=== PATIENT | female | born 1985 | race African-American/Black ===

== ENCOUNTER 2019-04-22 08:47 | Emergency (ER) | payer OTHER ==
[2019-04-22 09:13] VITALS: BP 121/79
--- NOTE | 2019-04-22 09:25 | ED Physician Documentation ---
PD HPI FEMALE - Stated complaint Stated Complaint: FEMALE - Chief complaint Chief Complaint: UTI - History obtained from History obtained from: Patient - History of Present Illness Timing - onset: Yesterday Timing - details: Still present Associated symptoms: Vaginal discharge, Dysuria Similar symptoms before: Diagnosis (Similar symptoms about 5 years ago with vaginal yeast infection during .) Recently seen: Other (She was diagnosed with "walking pneumonia" 1 week ago and was prescribed Zithromax and prednisone, which she has completed as of 2 days ago.) - Additional information Additional information: The patient is a 34-year-old female who presents with dysuria, vaginal itching, and a whitish vaginal discharge that started yesterday. She completed a course of Zithromax and prednisone 2 days ago after being diagnosed with "walking pneu monia" 1 week ago. Her pulmonary symptoms have resolved, but she has developed vaginal symptoms as above. She denies fever, abdominal pain, or back pain. Her last menstrual period was 2 weeks ago. She is status post bilateral tubal ligation. Review of Systems Constitutional: denies: Fever Nose: denies: Congestion Throat: denies: Sore throat Cardiac: denies: Chest pain / pressure Respiratory: denies: Dyspnea, Cough GI: denies: Abdominal Pain, Nausea, Vomiting : reports: Dysuria, Discharge, LMP (2 weeks ago.) Skin: denies: Rash Musculoskeletal: denies: Back pain Neurologic: denies: Headache PD PAST MEDICAL HISTORY - Past Medical History Cardiovascular: Hypertension Endocrine/Autoimmune: None - Present Medications Home Medications: Ambulatory Orders Medication Instructions Recorded Confirmed Fluconazole [Diflucan] 150 mg PO ONCE #1 tablet 04/22/19 amLODIPine [Norvasc] 10 mg PO DAILY 04/22/19 04/22/19 - Allergies Allergies/Adverse Reactions: Allergies Allergy/AdvReac Type Severity Reaction Status Date / Time No Known Drug Allergies Allergy Verified 04/22/19 09:07 PD ED PE NORMAL - Vitals Vital signs reviewed: Yes (Normal) - General General: Alert and oriented X 3, Well developed/nourished - HEENT HEENT: Atraumatic, Pharynx benign - Neck Neck: No adenopathy - Cardiac Cardiac: RRR - Respiratory Respiratory: No respiratory distress, Clear bilaterally - Abdomen Abdomen: Soft, Non tender - Back Back: No CVA TTP - Derm Derm: No rash - Extremities Extremities: No tenderness to palpate, No edema - Neuro Neuro: Alert and oriented X 3, No motor deficit, Normal speech Results - Vitals Vitals: Vital Signs - 24 hr 04/22/19 09:05 Temperature 36.7 C Heart Rate 84 Respiratory 16 Rate Blood Pressure 121/79 O2 Saturation 100 Oxygen O2 Source Room air - Labs Labs: Laboratory Tests 04/22/19 09:05 Urine Color YELLOW Urine Clarity HAZY Urine pH 6.0 Ur Specific [place] 1.010 Urine Protein NEGATIVE Urine Glucose (UA) NEGATIVE Urine Ketones NEGATIVE Urine Occult Blood TRACE-LYSE Urine Nitrite NEGATIVE Urine Bilirubin NEGATIVE Urine Urobilinogen 0.2 (NORMAL) Ur Leukocyte Esterase SMALL H Urine RBC 0-5 Urine WBC 0-3 Ur Squamous Epith Cells RARE Squamous Urine Bacteria Rare Ur Microscopic Review INDICATED Urine Culture Comments INDICATED PD MEDICAL DECISION MAKING - ED course Complexity details: reviewed results, re-evaluated patient, considered differential, d/w patient ED course: The patient's presentation is most consistent with vaginal yeast infection after completing a treatment course of Zithromax for pulmonary infection. Urinalysis reveals only 0-3 white cells per high-powered field, so is unlikely to represent a bladder infection. Treatment in the emergency department included administration of Diflucan 100 mg orally. She is being discharged with prescription for another tablet of Diflucan. I discussed with her the diagnosis, treatment and outpatient follow- up, as well as potentially worrisome signs or symptoms that should prompt reevaluation in the emergency department. Departure - Departure Disposition: 01 Home, Self Care Clinical Impression: Vaginal yeast infection Condition: Stable Instructions: ED Vaginal Infec Fungal Jennifer Follow-Up: [facility] [Provider Group] Prescriptions: Fluconazole [Diflucan] 150 mg PO ONCE #1 tablet Comments: Take Diflucan as prescribed. Follow-up with your primary physician or return to the emergency department if you develop increasing discharge, pain with urination, or otherwise worsening symptoms.
[2019-04-22 09:29] LABS: BILIRUBIN,URINE NEGATIVE (NEGATIVE); GLUCOSE, URINE (UA) NEGATIVE (NEGATIVE); KETONES,URINE (UA) NEGATIVE (NEGATIVE); LEUKOCYTE ESTERASE, URINE SMALL (NEGATIVE); NITRITE,URINE NEGATIVE (NEGATIVE); OCCULT BLOOD,URINE TRACE-LYSE (NEGATIVE); PROTEIN,URINE NEGATIVE (NEGATIVE); UROBILINOGEN,URINE 0.2 (NORMAL) E.U./dL (NORMAL)
[2019-04-22 09:36] LABS: CLARITY,URINE HAZY (CLEAR)
[2019-04-22 09:53] LABS: BACTERIA,URINE Rare /HPF (None Seen); RBC,URINE 0-5 /HPF (0-5); SQUAMOUS EPITHELIAL CELL,UR RARE Squamous (<= Few)
[2019-04-22] MEDS ORDERED: FLUCONAZOLE 100 MG TABLET PO STA (10:14)
== END 2019-04-22 10:21 | disposition home or self-care (01) ==
LOC: ED 08:47
DX: B37.3 Candidiasis of vulva and vagina (principal); I10 Essential (primary) hypertension; Z98.51 Tubal ligation status
CPT/HCPCS: 81001; 87086; 87181; 99283; 99284; A9270; 81003

== ENCOUNTER 2019-04-24 17:53 | Emergency (ER) | payer OTHER ==
[2019-04-24 18:19] LABS: BILIRUBIN,URINE NEGATIVE (NEGATIVE); GLUCOSE, URINE (UA) NEGATIVE (NEGATIVE); KETONES,URINE (UA) NEGATIVE (NEGATIVE); LEUKOCYTE ESTERASE, URINE MODERATE (NEGATIVE); NITRITE,URINE NEGATIVE (NEGATIVE); OCCULT BLOOD,URINE SMALL (NEGATIVE); PROTEIN,URINE NEGATIVE (NEGATIVE); UROBILINOGEN,URINE 0.2 (NORMAL) E.U./dL (NORMAL)
[2019-04-24 18:36] LABS: CLARITY,URINE HAZY (CLEAR)
[2019-04-24 18:51] LABS: BACTERIA,URINE None Seen /HPF (None Seen); RBC,URINE 0-5 /HPF (0-5); SQUAMOUS EPITHELIAL CELL,UR NONE SEEN (<= Few); WBC CLUMPS,URINE PRESENT
[2019-04-24 20:07] VITALS: BP 141/87
--- NOTE | 2019-04-24 20:11 | ED Physician Documentation ---
PD HPI FEMALE - Stated complaint Stated Complaint: FEM - Chief complaint Chief Complaint: UTI - History obtained from History obtained from: Patient - History of Present Illness Timing - onset: How many days ago (several) Timing - duration: Days Timing - details: Gradual onset, Still present (worse the past day) Associated symptoms: Dysuria, Urinary frequency. No: Fever, Back pain, Vaginal discharge, Genital sore/lesion Contributing factors: No: , Exposed to STD Recently seen: Emergency Dept (2 days ago for similar and had UA not convincing for UTI. 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 HEENT: None Psych: None Musculoskeletal: None Derm: None - Past Surgical History Past Surgical History: Yes General: Cholecystectomy /MAGAZINE PUBLISHER: section - Present Medications Home Medications: Ambulatory Orders Medication Instructions Recorded Confirmed Fluconazole [Diflucan] 150 mg PO ONCE #1 tablet 04/22/19 amLODIPine [Norvasc] 10 mg PO DAILY 04/22/19 04/22/19 Fluconazole [Diflucan] 150 mg PO ONCE #1 tablet 04/24/19 Phenazopyridine HCl [Pyridium] 100 mg PO TID PRN #15 tablet 04/24/19 Sulfamethox/Trimeth 800/160 1 each PO BID #14 tablet 04/24/19 [Bactrim Ds 800/160] - Allergies Allergies/Adverse Reactions: Allergies Allergy/AdvReac Type Severity Reaction Status Date / Time No Known Drug Allergies Allergy Verified 04/24/19 17:59 - Social History Does the pt smoke?: No Smoking Status: Never smoker Does the pt drink ETOH?: Yes Does the pt have substance abuse?: No - Immunizations Immunizations are current?: No - POLST Patient has POLST: No PD ED PE NORMAL - Vitals Vital signs reviewed: Yes - General General: Alert and oriented X 3, No acute distress, Well developed/nourished - Abdomen Abdomen: Soft, Non tender - Female Female : Deferred - Back Back: No CVA TTP - Derm Derm: Normal color, Warm and dry Results - Vitals Vitals: Vital Signs - 24 hr 10/02/19 10/02/19 10/02/19 17:59 19:57 20:02 Temperature 36.7 C Heart Rate 88 94 Respiratory 15 16 16 Rate Blood Pressure 141/87 H O2 Saturation 100 99 04/24/19 20:25 Temperature Heart Rate Respiratory 17 Rate Blood Pressure O2 Saturation Oxygen O2 Source Room air - Labs Labs: Microbiology 04/24/19 18:00 Urine Culture - Preliminary Urine,Clean Catch Escherichia Coli Laboratory Tests 04/24/19 18:00 Urine Color LT. YELLOW Urine Clarity HAZY Urine pH 7.0 Ur Specific [place] 1.010 Urine Protein NEGATIVE Urine Glucose (UA) NEGATIVE Urine Ketones NEGATIVE Urine Occult Blood SMALL H Urine Nitrite NEGATIVE Urine Bilirubin NEGATIVE Urine Urobilinogen 0.2 (NORMAL) Ur Leukocyte Esterase MODERATE H Urine RBC 0-5 Urine WBC >25 H Urine WBC Clumps PRESENT Ur Squamous Epith Cells NONE SEEN Urine Bacteria None Seen Ur Microscopic Review INDICATED Urine Culture Comments INDICATED PD MEDICAL DECISION MAKING - ED course Complexity details: reviewed results (has UTI. Had not looked at culture result from prior visit (did not think there had been one) until after discharge, and saw recent cx resistant to Bactrim, so had nursing call her to change abx to Keflex. ), considered differential, d/w patient Departure - Departure Disposition: 01 Home, Self Care Clinical Impression: UTI (urinary tract infection) Qualifiers: Urinary tract infection type: acute cystitis Hematuria presence: without hematuria Qualified Code(s): N30.00 - Acute cystitis without hematuria Condition: Stable Record reviewed to determine appropriate education?: Yes Instructions: ED UTI Cystitis Female Prescriptions: Fluconazole [Diflucan] 150 mg PO ONCE #1 tablet Phenazopyridine HCl [Pyridium] 100 mg PO TID PRN #15 tablet PRN Reason: Abdominal Pain Sulfamethox/Trimeth 800/160 [Bactrim Ds 800/160] 1 each PO BID #14 tablet Comments: You do have signs of a bladder infection based on urine test. Stay well-hydra rodolfo. Use Bactrim antibiotic twice daily for a week. Phenazopyridine can be used 3 times a day to help with urinary discomfort. It will turn your urine orange so not to worry. Ibuprofen or naproxen or Tylenol as needed for pains. You can take an oral antifungal at the end of the week to make sure that the antibiotic stone precipitate a yeast infection. Recheck if not improving well over the next few days. Discharge Date/Time: 04/24/19 20:30
[2019-04-24] MEDS ORDERED: NAPROXEN 250 MG TABLET PO STA (20:14)
[2019-04-24] MEDS ORDERED: PHENAZOPYRIDINE 100 MG TABLET PO STA (20:14)
[2019-04-24] MEDS ORDERED: SULFAMETH/TRIMETH DS 800/160 MG TABLET PO STA (20:14)
== END 2019-04-24 20:30 | disposition home or self-care (01) ==
LOC: ED 17:53
DX: N30.00 Acute cystitis without hematuria (principal); I10 Essential (primary) hypertension
CPT/HCPCS: 81001; 87086; 87181; 99283; A9270; 81003

== ENCOUNTER 2019-07-22 09:15 | Emergency (ER) | payer OTHER ==
[2019-07-22 09:58] LABS: BASOPHILS % (AUTO) 0.5 %; EOSINOPHILS # (AUTO) 0.1 10^3/uL (0.0-0.7); EOSINOPHILS % (AUTO) 1.6 %; HGB - HEMOGLOBIN 12.9 g/dL (12.0-16.0); LYMPHOCYTES # (AUTO) 1.4 10^3/uL (1.5-3.5); LYMPHOCYTES % (AUTO) 36.2 %; MEAN CORPUSCULAR HEMOGLOBIN 32.4 pg (27.0-31.0); MEAN CORPUSCULAR HGB CONC 34.3 g/dL (32.0-36.0); MEAN CORPUSCULAR VOLUME 94.5 fL (81.0-99.0); MEAN PLATELET VOLUME 10.8 fL (7.9-10.8); MONOCYTES # (AUTO) 0.4 10^3/uL (0.0-1.0); MONOCYTES % (AUTO) 9.7 %; NEUTROPHILS # (AUTO) 1.9 10^3/uL (1.5-6.6); NEUTROPHILS % (AUTO) 51.7 %; PLT - PLATELET COUNT 209 10^3/uL (130-450); RED BLOOD COUNT 3.98 10^6/uL (4.20-5.40); RED CELL DISTRIBUTION WIDTH 11.6 % (12.0-15.0); WHITE BLOOD COUNT 3.7 x10^3/uL (4.8-10.8)
--- NOTE | 2019-07-22 10:02 | ED Physician Documentation ---
PD HPI ABD PAIN - Stated complaint Stated Complaint: ABD/SIDE PX - Chief complaint Chief Complaint: Abd Pain - History obtained from History obtained from: Patient - History of Present Illness Timing - onset: How many days ago Timing - duration: Days (2) Timing - details: Abrupt onset Pain level now: 3 Quality: Sharp, Pain Location: Other (Left flank) Improved by: Position Worsened by: Moving, Breathing Associated symptoms: No: Fever, Nausea, Vomiting, Diarrhea, Chest pain, Dizzy, Near syncope / syncope Similar symptoms before: Has not had sx before Recently seen: Not recently seen - Additional information Additional information: This is a 34-year-old woman who presents with complaints that 2 days ago she was walking through her house carrying a plastic plate with hamburger and snack on it when she had the sudden onset of pain in her left flank that shot across to the right side of her back and she was so severe she actually fell to her knees. She crawled over to the bed and climbed up into the bed took 2 800 mg of ibuprofen and put a heating pad on her back and the pain let up some but it just has not gone away. Is now starting to move around into her left upper abdomen and her epigastric area. She is tried doing stretches but she now has a constant steady pain at about a 3 out of 10. She can get the pain to ease off if she gets in a certain position but is bad enough if she moves a certain way that she is actually gasping and pain. Was not ill prior to this no coughing. She is not had any dysuria or hematuria. Her sister has a history of kidney stones and her sister not herself. She denies any pain radiating down her legs and denies stating she is status post bilateral tubal ligation. Patient has noted that after her and her have intercourse she has difficulty moving her legs. He actually has to help position her and slowly the strength will come back in her legs. They do not really go numb. Review of Systems Constitutional: denies: Fever Cardiac: denies: Palpitations Respiratory: denies: Dyspnea, Cough GI: reports: Abdominal Pain. 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 SPECIALIST: Other : None HEENT: None Psych: None Musculoskeletal: None Derm: None - Past Surgical History Past Surgical History: Yes General: Cholecystectomy /MEDICAL AUTHORIZATION SPECIALIST: section - Present Medications Home Medications: Ambulatory Orders Medication Instructions Recorded Confirmed Fluconazole [Diflucan] 150 mg PO ONCE #1 tablet 04/22/19 amLODIPine [Norvasc] 10 mg PO DAILY 04/22/19 04/22/19 Fluconazole [Diflucan] 150 mg PO ONCE #1 tablet 04/24/19 Phenazopyridine HCl [Pyridium] 100 mg PO TID PRN #15 tablet 04/24/19 Sulfamethox/Trimeth 800/160 1 each PO BID #14 tablet 04/24/19 [Bactrim Ds 800/160] Cyclobenzaprine [Flexeril] 10 mg PO TID PRN #20 tablet 07/22/19 - Allergies Allergies/Adverse Reactions: Allergies Allergy/AdvReac Type Severity Reaction Status Date / Time No Known Drug Allergies Allergy Verified 07/22/19 09:25 - Social History Does the pt smoke?: No Smoking Status: Never smoker Does the pt drink ETOH?: Yes Does the pt have substance abuse?: No - Immunizations Immunizations are current?: No - POLST Patient has POLST: No PD ED PE NORMAL - Vitals Vital signs reviewed: Yes - General General: Alert and oriented X 3, No acute distress, Well developed/nourished - HEENT HEENT: Atraumatic, PERRL, Moist mucous membranes - Cardiac Cardiac: RRR, No murmur, Strong equal pulses - Respiratory Respiratory: No respiratory distress, Clear bilaterally - Abdomen Abdomen: Normal bowel sounds, Soft, Non tender, Non distended, No organomegaly - Back Back: No: No CVA TTP (Left costovertebral angle tenderness) - Derm Derm: Normal color, Warm and dry, No rash - Extremities Extremities: No tenderness to palpate, No edema - Neuro Neuro: Alert and oriented X 3, part maker 2-12 intact, No motor deficit, No sensory deficit, Normal speech, Other (Reflexes are 2+ and symmetrical at the quadriceps. Negative to seated straight leg raise) - Psych Psych: Normal mood, Normal affect Results - Vitals Vitals: Vital Signs - 24 hr 12/07/22/19 07/22/19 09:25 10:58 11:57 Temperature 36.8 C Heart Rate 80 64 65 Respiratory 20 18 18 Rate Blood Pressure 109/63 119/73 115/78 O2 Saturation 99 100 100 Oxygen O2 Source Room air - Labs Labs: Laboratory Tests 07/22/19 07/22/19 07/22/19 09:10 09:50 09:50 WBC 3.7 L RBC 3.98 L Hgb 12.9 Hct 37.6 MCV 94.5 MCH 32.4 H MCHC 34.3 RDW 11.6 L Plt Count 209 MPV 10.8 Neut # (Auto) 1.9 Lymph # (Auto) 1.4 L [place] # (Auto) 0.4 Eos # (Auto) 0.1 Baso # (Auto) 0.0 Absolute Nucleated RBC 0.00 Nucleated RBC % 0.0 Sodium 138 Potassium 4.0 Chloride 105 Carbon Dioxide 27 Anion Gap 6.0 BUN 14 Creatinine 0.8 Estimated GFR (MDRD) 100 Glucose 91 Calcium 9.4 Total Bilirubin 0.7 AST 15 ALT 16 Alkaline Phosphatase 29 L Total Protein 7.7 Albumin 4.6 Globulin 3.1 Albumin/Globulin Ratio 1.5 Lipase 34 Urine Color LT. YELLOW Urine Clarity CLEAR Urine pH 6.5 Ur Specific [place] 1.010 Urine Protein NEGATIVE Urine Glucose (UA) NEGATIVE Urine Ketones NEGATIVE Urine Occult Blood NEGATIVE Urine Nitrite NEGATIVE Urine Bilirubin NEGATIVE Urine Urobilinogen 0.2 (NORMAL) Ur Leukocyte Esterase NEGATIVE Ur Microscopic Review NOT INDICATED Urine Culture Comments NOT INDICATED Urine HCG, Qual NEGATIVE - Rads (name of study) lumbar xray Radiology: EMP read contemporaneously (neg), See rad report PD MEDICAL DECISION MAKING - ED course Complexity details: reviewed results, re-evaluated patient, d/w patient ED course: Urinalysis was negative. Labs were normal. Patient had Toradol 30 mg IV and was feeling much better she said she could sit upright now. Plain imaging of the thoracic spine did not show any obvious fracture. I recommended that she continue taking ibuprofen [id number] at home. Ice the lower back and continue with stretching. Given her prescription for muscle relaxer if she has difficulty sleeping at night. Given her complaint of her legs feeling very weak after she has been having intercourse and her inability to walk now associated with this spasm I think that it would be warranted to pursue MRI scanning of her lumbar spine to make sure there is not some cord compression. This was discussed with her and she will follow-up with her primary care provider. Departure - Departure Disposition: 01 Home, Self Care Clinical Impression: Spasm of thoracic back muscle Condition: Good Instructions: ED Spasm Back No Trauma Follow-Up: [facility] [Provider Group] Prescriptions: Cyclobenzaprine [Flexeril] 10 mg PO TID PRN #20 tablet PRN Reason: Spasms Comments: Ice the lower back where it hurts and continue with stretching exercises. Take ibuprofen 3 to 4 tablets every 8 hours with food. May use the Flexeril if needed for additional pain but do not drive or operate machinery if you are taking that. I think you should discuss with your primary care provider whether or not you need an MRI scanning based on your symptoms of leg weakness that occur intermittently as you discussed with me.
[2019-07-22 10:11] LABS: ALBUMIN 4.6 g/dL (3.2-5.5); ALBUMIN/GLOBULIN RATIO 1.5 (1.0-2.2); BILIRUBIN,TOTAL 0.7 mg/dL (0.2-1.0); CALCIUM 9.4 mg/dL (8.5-10.3); CREATININE 0.8 mg/dL (0.4-1.0); TOTAL PROTEIN 7.7 g/dL (6.7-8.2)
[2019-07-22 10:11] LABS: BILIRUBIN,URINE NEGATIVE (NEGATIVE); GLUCOSE, URINE (UA) NEGATIVE (NEGATIVE); KETONES,URINE (UA) NEGATIVE (NEGATIVE); LEUKOCYTE ESTERASE, URINE NEGATIVE (NEGATIVE); NITRITE,URINE NEGATIVE (NEGATIVE); OCCULT BLOOD,URINE NEGATIVE (NEGATIVE); PH,URINE 6.5 PH (5.0-7.5); PROTEIN,URINE NEGATIVE (NEGATIVE); UROBILINOGEN,URINE 0.2 (NORMAL) E.U./dL (NORMAL)
[2019-07-22 10:12] LABS: CLARITY,URINE CLEAR (CLEAR); HCG UR QUAL NEGATIVE
[2019-07-22] MEDS ORDERED: KETOROLAC 30 MG/ML VIAL IVP STA (10:28)
--- NOTE | 2019-07-22 11:11 | XRAY Report ---
Reason: back pain Procedure Date: 07/22/2019 Accession Number: [id number] / [id number] Procedure: XR - Thoracic Spine 2 View CPT Code: Final Report FULL RESULT: EXAM: THORACIC SPINE RADIOGRAPHY EXAM DATE: 07/22/2019 10:58 AM. CLINICAL HISTORY: Back pain. COMPARISON: None. TECHNIQUE: 2 views. FINDINGS: Alignment: Normal. No spondylolisthesis or scoliosis. Bones: No fractures or bone lesions. Disks: Normal. Disk heights are maintained. Soft Tissues: Normal. The visualized lungs and cardiomediastinal silhouette are normal. IMPRESSION: Normal thoracic spine radiography. [facility]
[2019-07-22 11:58] VITALS: BP 115/78
== END 2019-07-22 12:21 | disposition home or self-care (01) ==
LOC: ED 09:15
DX: M62.830 Muscle spasm of back (principal); I10 Essential (primary) hypertension
CPT/HCPCS: 36415; 72070; 80053; 81001; 81003; 81025; 83690; 85025; 87086; 96374; 99284

== ENCOUNTER 2020-02-07 14:52 | Emergency (ER) | payer OTHER | END 2020-02-07 15:02 | disposition left against medical advice (07) | LOC: ED 14:52 → MERGE 14:52 → ED 15:02 | DX: Z53.21 Procedure and treatment not carried out due to patient leaving prior to being seen by health care provider (principal) ==

== ENCOUNTER 2020-02-08 11:16 | Emergency (ER) | payer OTHER ==
[2020-02-08 11:44] LABS: BASOPHILS % (AUTO) 0.6 %; EOSINOPHILS # (AUTO) 0.1 10^3/uL (0.0-0.7); EOSINOPHILS % (AUTO) 1.4 %; HGB - HEMOGLOBIN 12.3 g/dL (12.0-16.0); LYMPHOCYTES # (AUTO) 1.4 10^3/uL (1.5-3.5); LYMPHOCYTES % (AUTO) 39.1 %; MEAN CORPUSCULAR HEMOGLOBIN 32.6 pg (27.0-31.0); MEAN CORPUSCULAR HGB CONC 34.1 g/dL (32.0-36.0); MEAN CORPUSCULAR VOLUME 95.8 fL (81.0-99.0); MEAN PLATELET VOLUME 10.3 fL (7.9-10.8); MONOCYTES # (AUTO) 0.3 10^3/uL (0.0-1.0); MONOCYTES % (AUTO) 7.2 %; NEUTROPHILS # (AUTO) 1.8 10^3/uL (1.5-6.6); NEUTROPHILS % (AUTO) 51.4 %; PLT - PLATELET COUNT 231 10^3/uL (130-450); RED BLOOD COUNT 3.77 10^6/uL (4.20-5.40); RED CELL DISTRIBUTION WIDTH 11.9 % (12.0-15.0); WHITE BLOOD COUNT 3.5 x10^3/uL (4.8-10.8)
[2020-02-08 11:46] LABS: BILIRUBIN,URINE NEGATIVE (NEGATIVE); GLUCOSE, URINE (UA) NEGATIVE (NEGATIVE); KETONES,URINE (UA) NEGATIVE (NEGATIVE); LEUKOCYTE ESTERASE, URINE NEGATIVE (NEGATIVE); NITRITE,URINE POSITIVE (NEGATIVE); OCCULT BLOOD,URINE NEGATIVE (NEGATIVE); PH,URINE 5.5 PH (5.0-7.5); PROTEIN,URINE NEGATIVE (NEGATIVE); UROBILINOGEN,URINE 0.2 (NORMAL) E.U./dL (NORMAL)
[2020-02-08 11:47] LABS: CLARITY,URINE CLEAR (CLEAR)
[2020-02-08 11:48] LABS: HCG UR QUAL NEGATIVE
[2020-02-08 11:57] LABS: ALBUMIN 4.1 g/dL (3.2-5.5); ALBUMIN/GLOBULIN RATIO 1.2 (1.0-2.2); BILIRUBIN,TOTAL 0.8 mg/dL (0.2-1.0); CALCIUM 9.2 mg/dL (8.5-10.3); CREATININE 0.8 mg/dL (0.4-1.0); TOTAL PROTEIN 7.5 g/dL (6.7-8.2)
[2020-02-08 12:02] LABS: BACTERIA,URINE Rare /HPF (None Seen); SQUAMOUS EPITHELIAL CELL,UR RARE Squamous (<= Few)
--- NOTE | 2020-02-08 12:05 | ED Physician Documentation ---
PD HPI ABD PAIN - Stated complaint Stated Complaint: RT SIDE PX - Chief complaint Chief Complaint: Abd Pain - History obtained from History obtained from: Patient - History of Present Illness Timing - onset: How many days ago (2) Timing - duration: Days (2) Timing - details: Gradual onset, Still present, Waxing and waning Quality: Cramping, Aching, Pain Location: RLQ, Suprapubic Radiation: Right flank Improved by: No: Eating, Laying still, BM Worsened by: No: Eating, Moving, Breathing, Position Associated symptoms: Nausea, Dysuria, Loss of appetite. No: Fever, Vomiting, Diarrhea, Constipation, Near syncope / syncope Similar symptoms before: Has not had sx before Recently seen: Not recently seen Review of Systems Constitutional: denies: Fever, Chills, Myalgias Nose: denies: Rhinorrhea / runny nose, Congestion Throat: denies: Sore throat Respiratory: denies: Cough GI: reports: Abdominal Pain, Nausea. denies: Abdominal Swelling, Vomiting, Constipation, Diarrhea : reports: Dysuria, Frequency. denies: Discharge Skin: denies: Rash, Lesions Musculoskeletal: reports: Back pain (right flank and lateral abd) Neurologic: denies: Focal weakness, Numbness PD PAST MEDICAL HISTORY - Past Medical History Cardiovascular: None Respiratory: Asthma Neuro: None Endocrine/Autoimmune: None - Past Surgical History Past Surgical History: No - Present Medications Home Medications: Ambulatory Orders Medication Instructions Recorded Confirmed Benzonatate [Tessalon Perle] 100 mg PO TID PRN #20 capsule 01/13/20 Doxycycline Monohydrate 100 mg PO BID #14 tablet 01/13/20 dexAMETHasone [Decadron] 4 mg PO DAILY #5 tablet 01/13/20 Cephalexin [Keflex] 500 mg PO Q6H #28 capsule 02/08/20 Fluconazole [Diflucan] 150 mg PO Q3D #2 tablet 02/08/20 Hydrocodone/Acetaminophen [[place] 1 each PO Q6H PRN #20 tablet 02/08/20 5-325 Tablet] Naproxen 375 mg PO BID #20 tablet 02/08/20 Ondansetron Odt [Zofran] 4 mg TL Q6H PRN #10 tablet 02/08/20 Saccharomyces Boulardii [Florastor] 250 mg PO BID #20 capsule 02/08/20 - Allergies Allergies/Adverse Reactions: Allergies Allergy/AdvReac Type Severity Reaction Status Date / Time No Known Drug Allergies Allergy Verified 02/08/20 11:20 - Social History Does the pt smoke?: No Smoking Status: Never smoker Does the pt drink ETOH?: No Does the pt have substance abuse?: Yes - Immunizations Immunizations: TDAP >10years/unknown PD ED PE NORMAL - Vitals Vital signs reviewed: Yes - General General: Alert and oriented X 3, Well developed/nourished, Other (She appears uncomfortable and in pain on the right abdomen and right flank.) - HEENT HEENT: Pharynx benign - Neck Neck: Supple, no meningeal sign, No adenopathy - Cardiac Cardiac: RRR, No murmur - Respiratory Respiratory: Clear bilaterally - Abdomen Abdomen: Normal bowel sounds, Soft, Non distended, No organomegaly, Other (No localized tenderness in the right abdomen. There is some right CVA tenderness. No guarding or percussion tenderness. There is some suprapubic discomfort.) - Female Female : Deferred - Rectal Rectal: Deferred - Back Back: No CVA TTP - Derm Derm: Normal color, Warm and dry - Extremities Extremities: Normal ROM s pain, No edema, No calf tenderness / cord - Neuro Neuro: Alert and oriented X 3, No motor deficit, Normal speech Results - Vitals Vitals: Vital Signs - 24 hr 02/08/20 02/08/20 02/08/20 11:20 13:18 15:03 Temperature 37.3 C 37.3 C Heart Rate 86 69 83 Respiratory 18 12 17 Rate Blood Pressure 125/81 H 113/78 125/90 H O2 Saturation 100 98 100 Oxygen O2 Source Room air - Labs Labs: Laboratory Tests 02/08/20 02/08/20 02/08/20 11:30 11:36 11:36 WBC 3.5 L RBC 3.77 L Hgb 12.3 Hct 36.1 L MCV 95.8 MCH 32.6 H MCHC 34.1 RDW 11.9 L Plt Count 231 MPV 10.3 Neut # (Auto) 1.8 Lymph # (Auto) 1.4 L [place] # (Auto) 0.3 Eos # (Auto) 0.1 Baso # (Auto) 0.0 Absolute Nucleated RBC 0.00 Nucleated RBC % 0.0 Sodium 137 Potassium 3.7 Chloride 105 Carbon Dioxide 26 Anion Gap 6.0 BUN 9 Creatinine 0.8 Estimated GFR (MDRD) 100 Glucose 99 Calcium 9.2 Total Bilirubin 0.8 AST 15 ALT 17 Alkaline Phosphatase 33 L Total Protein 7.5 Albumin 4.1 Globulin 3.4 Albumin/Globulin Ratio 1.2 Lipase 35 Urine Color YELLOW Urine Clarity CLEAR Urine pH 5.5 Ur Specific [place] 1.020 Urine Protein NEGATIVE Urine Glucose (UA) NEGATIVE Urine Ketones NEGATIVE Urine Occult Blood NEGATIVE Urine Nitrite POSITIVE H Urine Bilirubin NEGATIVE Urine Urobilinogen 0.2 (NORMAL) Ur Leukocyte Esterase NEGATIVE Urine RBC None Seen Urine WBC 0-3 Ur Squamous Epith Cells RARE Squamous Urine Bacteria Rare Ur Microscopic Review INDICATED Urine Culture Comments INDICATED Urine HCG, Qual NEGATIVE - Rads (name of study) abd CT Radiology: Prelim report reviewed (No hydronephrosis nor ureterolithiasis. There is localized swelling of the cecal and ascending colon. No perforation or obstruction), See rad report PD MEDICAL DECISION MAKING - ED course Complexity details: reviewed results (No kidney infection or stones. There is localized colitis that I assume is accounting for her abdomen and flank pain. Incidentally is a UTI. It does not look like Jose R.), re-evaluated patient (Her pain is lessened moderately with Toradol and lidocaine. She is driving home and was unable to get a ride for her and her child so was not given any narcotic medicines here. She is still moderately uncomfortable but is willing to get a prescription and take meds at home.), considered differential (She has some dysuria and flank pain so consideration of UTI and Jose R. However significant flank pain so concern for kidney stone or infected stone. Will get CT scan to evaluate.), d/w patient Departure - Departure Disposition: Home, Self Care Clinical Impression: Right sided abdominal pain, Colitis UTI (urinary tract infection) Qualifiers: Urinary tract infection type: acute cystitis Hematuria presence: without hematuria Qualified Code(s): N30.00 - Acute cystitis without hematuria Condition: Stable Record reviewed to determine appropriate education?: Yes Instructions: Abdominal Pain, ED UTI Cystitis Female Follow-Up: [facility] [Provider Group] Prescriptions: Fluconazole [Diflucan] 150 mg PO Q3D #2 tablet Saccharomyces Boulardii [Florastor] 250 mg PO BID #20 capsule Cephalexin [Keflex] 500 mg PO Q6H #28 capsule Naproxen 375 mg PO BID #20 tablet Hydrocodone/Acetaminophen [[place] 5-325 Tablet] 1 each PO Q6H PRN #20 tablet PRN Reason: Pain Ondansetron Odt [Zofran] 4 mg TL Q6H PRN #10 tablet PRN Reason: Nausea / Vomiting Comments: You do have signs of a bladder infection on your urine test. However your flank pain does not appear to be a kidney infection but rather a localized infection of the colon (colitis). These would get treated with anti-inflammatories and antibiotics. To that add dancer Jamie for nausea and hydrocodone for pain as needed. Use the Diflucan every third day to prevent yeast infection from the antibiotics. You could also add some probiotic medication to reduce intestinal side effects of the antibiotic. Follow-up with your primary care this coming Monday as planned. Recheck or return to the ER if worsening or if not well improving over the next couple of days. Discharge Date/Time: 02/08/20 15:20
[2020-02-08 12:12] LABS: RBC,URINE None Seen /HPF (0-5)
[2020-02-08] MEDS ORDERED: cefTRIAXone 1 GM VIAL IVP STA (12:27)
[2020-02-08] MEDS ORDERED: KETOROLAC 30 MG/ML VIAL IVP STA (12:27)
[2020-02-08] MEDS ORDERED: ONDANSETRON 4 MG/2 ML VIAL IVP STA (12:27)
[2020-02-08] MEDS ORDERED: LIDOCAINE-MPF 2% 7 ML in SODIUM CHLORIDE 0.9% 50 ML IV STA (12:43)
[2020-02-08] MEDS ORDERED: HYDROmorphone 1 MG/ML CARPUJECT IVP STA ×2 (13:29→14:50)
--- NOTE | 2020-02-08 14:02 | CT Report ---
PROCEDURE: Abdomen/Pelvis WO INDICATIONS: right flank to right low abd pain 2 day TECHNIQUE: Noncontrast 5 mm thick sections acquired from the diaphragms to the symphysis. 5 mm coronal and sagi ttal reformats were then performed. For radiation dose reduction, the following was used: automated exposure control, adjustment of mA and/or kV according to patient size. COMPARISON: Correlation is made with chest radiograph 01/13/2020 FINDINGS: Image quality: Excellent. ABDOMEN: Lung bases: Lung bases are clear. Heart size is normal. Solid organs: Liver and spleen are normal in size. Gallbladder has been removed. Pancreas is wilbert l in contours. No adrenal nodules. Kidneys are normal in size, without hydronephrosis or nephrolith iasis. Peritoneum and bowel: Mild wall thickening can be seen involving the cecum and the descending colon, which is best demonstrated on coronal images. Minimal surrounding inflammatory changes are seen. No associated abscess. No free fluid or air. Unenhanced bowel loops otherwise demonstrate normal wall thickness and caliber. A normal appendix c an be seen. Nodes and vessels: No retroperitoneal or mesenteric adenopathy by size criteria. Aorta and inferior vena cava are normal in caliber. Miscellaneous: No ventral hernias. PELVIS: Genitourinary: Bladder wall thickness is normal. Miscellaneous: No inguinal hernias or adenopathy. The uterus is unremarkable. Cystic changes are se en of the adnexal regions, which are considered to be within physiologic limits. Bones: No suspicious bony lesions. No vertebral body compression fractures. Mild levoconvex scolio tic curvature is seen. IMPRESSION: Focal inflammatory change involving the cecum and the ascending colon. No findings of perforation or abscess can be seen. Normal appendix. Incidental note is made of: Cholecystectomy Levoconvex scoliotic curvature Reviewed by: Buddy Pepper MD on 02/08/2020 1:01 PM [facility]TH[facility] Approved by: Buddy Pepper MD on 02/08/2020 1:01 PM ARETHA Station ID: [id number]
[2020-02-08 15:04] VITALS: BP 125/90
== END 2020-02-08 15:20 | disposition home or self-care (01) ==
LOC: MERGE 11:16 → ED 11:16
DX: K52.9 Noninfective gastroenteritis and colitis, unspecified (principal); N30.00 Acute cystitis without hematuria
CPT/HCPCS: 36415; 74176; 80053; 81001; 81025; 83690; 85025; 87086; 96365; 96375; 99284; 99285; J7040; 81003

== ENCOUNTER 2020-02-11 18:55 | Emergency (ER) | payer OTHER ==
[2020-02-11 19:18] LABS: BILIRUBIN,URINE NEGATIVE (NEGATIVE); GLUCOSE, URINE (UA) NEGATIVE (NEGATIVE); KETONES,URINE (UA) NEGATIVE (NEGATIVE); LEUKOCYTE ESTERASE, URINE NEGATIVE (NEGATIVE); NITRITE,URINE NEGATIVE (NEGATIVE); OCCULT BLOOD,URINE NEGATIVE (NEGATIVE); PH,URINE 5.5 PH (5.0-7.5); PROTEIN,URINE NEGATIVE (NEGATIVE); UROBILINOGEN,URINE 0.2 (NORMAL) E.U./dL (NORMAL)
[2020-02-11 19:22] LABS: CLARITY,URINE CLEAR (CLEAR)
[2020-02-11 19:23] LABS: HCG UR QUAL NEGATIVE
[2020-02-11 20:25] LABS: BASOPHILS % (AUTO) 0.6 %; EOSINOPHILS # (AUTO) 0.1 10^3/uL (0.0-0.7); EOSINOPHILS % (AUTO) 1.3 %; HGB - HEMOGLOBIN 11.8 g/dL (12.0-16.0); LYMPHOCYTES % (AUTO) 42.8 %; MEAN CORPUSCULAR HGB CONC 34.4 g/dL (32.0-36.0); MEAN CORPUSCULAR VOLUME 95.8 fL (81.0-99.0); MEAN PLATELET VOLUME 10.6 fL (7.9-10.8); MONOCYTES # (AUTO) 0.4 10^3/uL (0.0-1.0); NEUTROPHILS # (AUTO) 2.2 10^3/uL (1.5-6.6); NEUTROPHILS % (AUTO) 47.1 %; PLT - PLATELET COUNT 240 10^3/uL (130-450); RED BLOOD COUNT 3.58 10^6/uL (4.20-5.40); RED CELL DISTRIBUTION WIDTH 11.8 % (12.0-15.0); WHITE BLOOD COUNT 4.6 x10^3/uL (4.8-10.8)
[2020-02-11 20:39] LABS: ALBUMIN 4.2 g/dL (3.2-5.5); ALBUMIN/GLOBULIN RATIO 1.4 (1.0-2.2); BILIRUBIN,TOTAL 0.6 mg/dL (0.2-1.0); CALCIUM 9.3 mg/dL (8.5-10.3); CREATININE 0.8 mg/dL (0.4-1.0); TOTAL PROTEIN 7.2 g/dL (6.7-8.2)
--- NOTE | 2020-02-11 22:02 | ED Physician Documentation ---
PD HPI ABD PAIN - Stated complaint Stated Complaint: RT SIDE ABD PX - Chief complaint Chief Complaint: Abd Pain - History obtained from History obtained from: Patient - History of Present Illness Timing - onset: How many days ago (4) Timing - duration: Days (4) Timing - details: Gradual onset, Constant, Waxing and waning Pain level max: 10 Pain level now: 8 Quality: Pain Location: RLQ, Other (right abdomen and right flank) Associated symptoms: Nausea. No: Vomiting Similar symptoms before: Diagnosis (colitis) Recently seen: Emergency Dept (T+R 3 days ago for same) - Additional information Additional information: c/o right-sided abdominal pain since Monday (four days ago), constant, gradual onset. Denies h/o similar pain. nausea but no vomiting. Denies diarrhea, feels constipated. She was T+R from this ED 3 days ago and w/u included CT A/P which was s/o right- sided colitis. Patient was prescribed keflex for possible UTI, as well as naproxen and vicodin. Also rx diflucan and zofran. She says she has had inadequate relief with these medications, not worse but she says she was instructed to return to the emergency department if not improving by today. Review of Systems Constitutional: denies: Fever, Chills, Sweats Cardiac: reports: Reviewed and negative Respiratory: reports: Reviewed and negative GI: reports: Abdominal Pain, Nausea, Constipation. 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: section - Present Medications Home Medications: Ambulatory Orders Medication Instructions Recorded Confirmed Fluconazole [Diflucan] 150 mg PO ONCE #1 tablet 04/22/19 amLODIPine [Norvasc] 10 mg PO DAILY 04/22/19 04/22/19 Fluconazole [Diflucan] 150 mg PO ONCE #1 tablet 04/24/19 Phenazopyridine HCl [Pyridium] 100 mg PO TID PRN #15 tablet 04/24/19 Sulfamethox/Trimeth 800/160 1 each PO BID #14 tablet 04/24/19 [Bactrim Ds 800/160] Cyclobenzaprine [Flexeril] 10 mg PO TID PRN #20 tablet 07/22/19 Benzonatate [Tessalon Perle] 100 mg PO TID PRN #20 capsule 01/13/20 Doxycycline Monohydrate 100 mg PO BID #14 tablet 01/13/20 dexAMETHasone [Decadron] 4 mg PO DAILY #5 tablet 01/13/20 Cephalexin [Keflex] 500 mg PO Q6H #28 capsule 02/08/20 Fluconazole [Diflucan] 150 mg PO Q3D #2 tablet 02/08/20 Hydrocodone/Acetaminophen [[place] 1 each PO Q6H PRN #20 tablet 02/08/20 5-325 Tablet] Naproxen 375 mg PO BID #20 tablet 02/08/20 Ondansetron Odt [Zofran] 4 mg TL Q6H PRN #10 tablet 02/08/20 Saccharomyces Boulardii [Florastor] 250 mg PO BID #20 capsule 02/08/20 oxyCODONE [Roxicodone] 5 - 10 mg PO Q6H PRN #14 tablet 02/11/20 - Allergies Allergies/Adverse Reactions: Allergies Allergy/AdvReac Type Severity Reaction Status Date / Time No Known Drug Allergies Allergy Verified 02/11/20 18:59 - Social History Does the pt smoke?: No Smoking Status: Never smoker Does the pt drink ETOH?: No Does the pt have substance abuse?: Yes - Immunizations Immunizations are current?: No Immunizations: TDAP >10years/unknown - POLST Patient has POLST: No PD ED PE NORMAL - Vitals Vital signs reviewed: Yes - General General: Alert and oriented X 3, No acute distress, Well developed/nourished - HEENT HEENT: Moist mucous membranes - Neck Neck: Supple, no meningeal sign - Cardiac Cardiac: RRR, No murmur, No gallop, No rub - Respiratory Respiratory: No respiratory distress, Clear bilaterally - Abdomen Abdomen: Soft, Other (right hypogastric and RLQ tenderness without rebound or guarding) - Back Back: No CVA TTP - Derm Derm: Normal color, Warm and dry, No rash Results - Vitals Vitals: Vital Signs - 24 hr 02/11/20 02/11/20 21:02 23:15 Temperature 37.2 C Heart Rate 72 72 Respiratory 18 17 Rate Blood Pressure 126/79 123/77 O2 Saturation 98 100 Oxygen O2 Source Room air - Labs Labs: Microbiology 02/11/20 11:14 Urine Culture - Preliminary Urine,Random CULTURE IN PROGRESS. RESULTS TO FOLLOW. Laboratory Tests 02/11/20 02/11/20 02/11/20 19:14 20:18 20:18 WBC 4.6 L RBC 3.58 L Hgb 11.8 L Hct 34.3 L MCV 95.8 MCH 33.0 H MCHC 34.4 RDW 11.8 L Plt Count 240 MPV 10.6 Neut # (Auto) 2.2 Lymph # (Auto) 2.0 [place] # (Auto) 0.4 Eos # (Auto) 0.1 Baso # (Auto) 0.0 Absolute Nucleated RBC 0.00 Nucleated RBC % 0.0 Sodium 140 Potassium 4.1 Chloride 106 Carbon Dioxide 27 Anion Gap 7.0 BUN 13 Creatinine 0.8 Estimated GFR (MDRD) 100 Glucose 97 Calcium 9.3 Total Bilirubin 0.6 AST 18 ALT 19 Alkaline Phosphatase 34 L Total Protein 7.2 Albumin 4.2 Globulin 3.0 Albumin/Globulin Ratio 1.4 Lipase 33 Urine Color YELLOW Urine Clarity CLEAR Urine pH 5.5 Ur Specific [place] 1.020 Urine Protein NEGATIVE Urine Glucose (UA) NEGATIVE Urine Ketones NEGATIVE Urine Occult Blood NEGATIVE Urine Nitrite NEGATIVE Urine Bilirubin NEGATIVE Urine Urobilinogen 0.2 (NORMAL) Ur Leukocyte Esterase NEGATIVE Ur Microscopic Review NOT INDICATED Urine Culture Comments NOT INDICATED Urine HCG, Qual NEGATIVE PD MEDICAL DECISION MAKING - ED course Complexity details: reviewed old records, reviewed results, re-evaluated patient, considered differential, d/w patient ED course: UA and lab tests are reassuring, with results comparable to previous (slight leukopenia, improved compared to previous). She has mild tenderness right hypogastrium and RLQ on exam. She says she is tolerating PO without difficulty, both liquids and solids. D/W Dr. Leggett (on-call surgery), can consider admit to hospitalist for pain control and NPO w/ bowel prep for possible colonoscopy. I offered this to patient, but she strongly prefers to try outpatient management with stronger pain medication. Her exam has no peritoneal signs and she is able to ambulate without apparent distress. I strongly encouraged her to return to ED if worse in any way including fever, worsening pain, blood in stool or vomitus (although not vomiting at this time), and to f/u with PMD. Departure - Departure Disposition: 01 Home, Self Care Clinical Impression: Colitis Condition: Good Instructions: ED Abdominal Pain Unkn Cause Follow-Up: [facility] [Provider Group] (Call tomorrow to arrange for next available follow up. Ideally, you should follow up with the surgeon.) José Miguel Leggett MD [Provider Admit Priv/Credential] - Tomorrow Prescriptions: oxyCODONE [Roxicodone] 5 - 10 mg PO Q6H PRN #14 tablet PRN Reason: Pain Discharge Date/Time: 02/11/20 23:17
[2020-02-11] MEDS ORDERED: oxyCODONE/ACET 5/325 Prepack 4 PO STA (22:47)
[2020-02-11 23:17] VITALS: BP 123/77
== END 2020-02-11 23:17 | disposition home or self-care (01) ==
LOC: ED 18:55
DX: K52.9 Noninfective gastroenteritis and colitis, unspecified (principal); I10 Essential (primary) hypertension
CPT/HCPCS: 36415; 80053; 81001; 81003; 81025; 83690; 85025; 87086; 99283; 99284